=== PATIENT | female | born 1950 | race Two or more races ===

== ENCOUNTER 2023-10-03 07:55 | Emergency (ER) | payer MEDICARE, MEDICAID ==
[~2023-10-03] VITALS: Ht 149.9 cm; Wt 83.0 kg
[~2023-10-03 07:55] MED LIST: ALP15OS EACHEYE; AMLO1TAB22 PO; ASPI-394 PO; ENAL1TAB42 PO; HYDR12.59 PO; OMEP20CA74 PO; [UNRECOGNIZED DRUG - CODE] PO
[2023-10-03] MEDS ORDERED: HYDROcodone-ACET 10/325MG TAB PO ONE (08:45)
[2023-10-03 12:02] VITALS: BP 131/75; PULSE 58; RESP 16; TEMP 97.7; O2SAT 95
== END 2023-10-03 12:14 | disposition home or self-care (01) ==
LOC: ER 07:55
DX: I10 Essential (primary) hypertension (principal); K21.9 Gastro-esophageal reflux disease without esophagitis; E78.5 Hyperlipidemia, unspecified
CPT/HCPCS: 70450; 82962